=== PATIENT | female | born 1935 | race Caucasian/White ===

== ENCOUNTER 2019-01-08 09:04 | Inpatient (IN) ==
[2019-01-08] MEDS ORDERED: fentaNYL 100 MCG/2 ML VIAL IV STA (09:25)
[2019-01-08] MEDS ORDERED: ONDANSETRON 4 MG/2 ML VIAL IV STA (09:25)
[2019-01-08 09:41] LABS: Basophils # 0.1 10*3/uL (0.0-0.2); Basophils % 0.5 % (0.0-0.8); Eosinophils % 0.3 % (0.00-10.9); Hematocrit 40.8 VOL% (35.7-47.0); Hemoglobin 12.9 GM/DL (12.0-16.0); Immature Granulocytes % 1.4 %; Immature Granulocytes Absolute 0.18 #; Lymphocytes # 3.8 10*3/uL (1.4-4.0); Mean Corpuscular HGB Conc 31.6 GM/DL (32-36); Mean Corpuscular Volume 90.7 FL (87-102); Mean Platelet Volume 11.8 FL (9.6-12.0); Monocytes % 12.2 % (1.7-12.7); Neutrophils % 55.6 % (38.7-73.9); Platelet Count 226 T/CUMM (130-400); Red Cell Distribution Width 13.6 % (9.3-17.3); White Blood Count 12.6 T/CUMM (4-12)
[2019-01-08 09:50] LABS: INR 0.9; PT Patient Result 10.3 SECS; Partial Thromboplastin Time 24.1 SECS (0-40)
[2019-01-08 10:12] LABS: Albumin 3.9 G/DL (3.4-5.0); Bilirubin,Total 0.6 MG/DL (0.2-1.0); Osmolality,Calculated 284.1 MOS/KG (273-304); Total Protein 7.6 G/DL (6.4-8.3)
[2019-01-08 10:36] LABS: Apearance,Urine Slightly Hazy (Clear); Bacteria,Urine Moderate /HPF (Few); Bilirubin,Urine Negative (Negative); Blood, Urine Small mg/dL (Negative); Glucose,Urine (UA) Negative (Negative); Ketones,Urine 5 mg/dL (Negative); Mucus,Urine Many /LPF (Occasional); Nitrite,Urine Positive (Negative); Protein,Urine 30 MG/DL; Squamous Epithelial Cell,Urine Occasional /HPF (0-10); Urine Color Yellow (Yellow); Urine Specific Gravity 1.021 (1.001-1.035); Urine Urobilinogen < 2.0 EU/DL (0.2-1.0); WBC,Urine 11 /HPF (0-6)
[2019-01-08] MEDS ORDERED: AMPICILLIN/SULBACTAM 3,000 MG in SODIUM CHLORIDE 0.9% 100 ML IV STA (10:47)
[2019-01-08] MEDS ORDERED: ACETAMINOPHEN 325 MG TABLET PO PRN (11:25)
[2019-01-08] MEDS ORDERED: diphenhydrAMINE CAP 25 MG CAPSULE PO PRN (11:25)
[2019-01-08] MEDS ORDERED: ZALEPLON 5 MG CAPSULE PO PRN (11:25)
[2019-01-08] MEDS ORDERED: guaiFENesin/DM ER 600-30 MG TABLET PO PRN (11:25)
[2019-01-08] MEDS ORDERED: PROMETHAZINE 25 MG/1 ML VIAL IM PRN (11:25)
[2019-01-08] MEDS ORDERED: MORPHINE 4 MG/1 ML VIAL IV PRN (11:25)
[2019-01-08] MEDS: SODIUM CHLORIDE 0.45% 1,000 ML IV SCH (14:21)
[2019-01-08] MEDS ORDERED: ceFAZolin 2,000 MG in PREMIX 1 EACH IV ONE (14:49)
[2019-01-08] MEDS: ceFAZolin 1,000 MG in SYRINGE 1 EACH IV SCH ×2 (15:30→23:35)
[2019-01-08] MEDS ORDERED: ROPIVACAINE 0.5% 30 ML VIAL ONE (18:12)
[2019-01-08] MEDS ORDERED: PROPOFOL 200 MG/20 ML VIAL IV ONE (18:17)
[2019-01-08] MEDS ORDERED: MIDAZOLAM 2 MG/2 ML VIAL ONE (18:18)
[2019-01-08] MEDS ORDERED: BUPIVACAINE SPINAL 0.75% 2 ML AMP SPINAL ONE (18:18)
[2019-01-08] MEDS ORDERED: DEXAMETHASONE 4 MG/1 ML VIAL ONE (18:18)
[2019-01-08] MEDS ORDERED: ETOMIDATE 40 MG/20 ML VIAL IV ONE (18:18)
[2019-01-08] MEDS ORDERED: fentaNYL 100 MCG/2 ML VIAL ONE (18:18)
[2019-01-08] MEDS ORDERED: ONDANSETRON 4 MG/2 ML VIAL ONE (18:18)
[2019-01-08] MEDS ORDERED: SODIUM CHLORIDE 0.9% 200 ML IV ONE (18:19)
[2019-01-08] MEDS ORDERED: LACTATED RINGERS 1,000 ML IV ONE (18:19)
[2019-01-08] MEDS ORDERED: PHENYLEPHRINE 1 MG/10 ML SYRINGE IV ONE (18:19)
[2019-01-08] MEDS ORDERED: ACETAMINOPHEN 1,000 MG/100 ML VIAL IV ONE (18:19)
[2019-01-08] MEDS: AMPICILLIN/SULBACTAM 3,000 MG in SODIUM CHLORIDE 0.9% 100 ML IV SCH (19:33)
[2019-01-08] MEDS: DOCUSATE SODIUM 100 MG CAPSULE PO SCH (21:04)
[2019-01-08] MEDS: ENOXAPARIN 40 MG/0.4 ML SYRINGE SUBCUT SCH (21:05)
[2019-01-09] MEDS: AMPICILLIN/SULBACTAM 3,000 MG in SODIUM CHLORIDE 0.9% 100 ML IV SCH ×3 (02:35→18:40)
[2019-01-09 05:32] LABS: Basophils # 0.1 10*3/uL (0.0-0.2); Basophils % 0.3 % (0.0-0.8); Eosinophils % 0.2 % (0.00-10.9); Hematocrit 34.1 VOL% (35.7-47.0); Immature Granulocytes % 0.4 %; Immature Granulocytes Absolute 0.07 #; Lymphocytes # 4.1 10*3/uL (1.4-4.0); Lymphocytes % 22.3 % (21.3-54.2); Mean Corpuscular HGB Conc 32.3 GM/DL (32-36); Mean Corpuscular Volume 90.5 FL (87-102); Mean Platelet Volume 12.6 FL (9.6-12.0); Monocytes % 17.8 % (1.7-12.7); Platelet Count 186 T/CUMM (130-400); Red Blood Count 3.77 MC/CUMM (3.8-5.5); White Blood Count 18.6 T/CUMM (4-12)
[2019-01-09] MEDS: LEVOTHYROXINE 50 MCG TABLET PO SCH (05:47)
[2019-01-09 05:56] LABS: Hypochromasia Slight; Lymphocytes 17 % (20-55); Platelet Estimate Adequate; Segmented Neutrophils 73 % (50-85); Total Cells Counted 100
[2019-01-09 05:57] LABS: Ovalocytes Slight
[2019-01-09 06:02] LABS: Calcium 7.4 MG/DL (8.5-10.1); Osmolality,Calculated 279.4 MOS/KG (273-304)
[2019-01-09 06:09] LABS: Risk Ratio 2.02
[2019-01-09] MEDS: SODIUM CHLORIDE 0.45% 1,000 ML IV SCH ×2 (06:45→09:25)
[2019-01-09] MEDS: amLODIPine 10 MG TABLET PO SCH (09:17)
[2019-01-09] MEDS: PANTOPRAZOLE 40 MG TABLET PO SCH (09:18)
[2019-01-09] MEDS: ATORVASTATIN 20 MG TABLET PO SCH (09:19)
[2019-01-09] MEDS: DOCUSATE SODIUM 100 MG CAPSULE PO SCH ×2 (09:19→22:06)
[2019-01-09] MEDS: ceFAZolin 1,000 MG in SYRINGE 1 EACH IV SCH ×2 (09:22→17:05)
[2019-01-09] MEDS: ENOXAPARIN 40 MG/0.4 ML SYRINGE SUBCUT SCH (22:06)
[2019-01-10] MEDS: ceFAZolin 1,000 MG in SYRINGE 1 EACH IV SCH ×2 (00:03→08:30)
[2019-01-10] MEDS: SODIUM CHLORIDE 0.45% 1,000 ML IV SCH (00:03)
[2019-01-10] MEDS: AMPICILLIN/SULBACTAM 3,000 MG in SODIUM CHLORIDE 0.9% 100 ML IV SCH ×2 (02:17→12:00)
[2019-01-10 05:57] LABS: Basophils # 0.1 10*3/uL (0.0-0.2); Basophils % 0.4 % (0.0-0.8); Hematocrit 30.8 VOL% (35.7-47.0); Hemoglobin 9.8 GM/DL (12.0-16.0); Immature Granulocytes % 0.7 %; Immature Granulocytes Absolute 0.15 #; Lymphocytes % 19.8 % (21.3-54.2); Mean Corpuscular HGB Conc 31.8 GM/DL (32-36); Mean Corpuscular Volume 91.4 FL (87-102); Mean Platelet Volume 12.8 FL (9.6-12.0); Monocytes % 18.6 % (1.7-12.7); Neutrophils % 60.5 % (38.7-73.9); Platelet Count 136 T/CUMM (130-400); Red Blood Count 3.37 MC/CUMM (3.8-5.5); White Blood Count 20.1 T/CUMM (4-12)
[2019-01-10 06:14] LABS: Albumin 2.4 G/DL (3.4-5.0); Bilirubin,Total 0.7 MG/DL (0.2-1.0); Osmolality,Calculated 275.7 MOS/KG (273-304); Total Protein 5.6 G/DL (6.4-8.3)
[2019-01-10 06:27] LABS: Eosinophils 1 % (0-10); Lymphocytes 15 % (20-55); Platelet Estimate Normal; Segmented Neutrophils 73 % (50-85); Total Cells Counted 100
[2019-01-10 06:28] LABS: Hypochromasia 1+; Ovalocytes Slight
[2019-01-10] MEDS: LEVOTHYROXINE 50 MCG TABLET PO SCH (07:02)
[2019-01-10] MEDS ORDERED: POTASSIUM CHLORIDE 20 MEQ TABLET PO ONE ×2 (07:14→11:00)
[2019-01-10] MEDS ORDERED: MAGNESIUM SULF RIDER 2 GM in PREMIX 1 EACH IV PRN (08:39)
[2019-01-10] MEDS ORDERED: MAGNESIUM SULF RIDER 4 GM in PREMIX 1 EACH IV PRN (08:39)
[2019-01-10] MEDS: DOCUSATE SODIUM 100 MG CAPSULE PO SCH ×2 (08:48→21:06)
[2019-01-10] MEDS: ATORVASTATIN 20 MG TABLET PO SCH (08:48)
[2019-01-10] MEDS: amLODIPine 10 MG TABLET PO SCH (08:48)
[2019-01-10] MEDS: PANTOPRAZOLE 40 MG TABLET PO SCH (08:48)
[2019-01-10 11:22] LABS: Calcium 7.8 MG/DL (8.5-10.1); Osmolality,Calculated 274.8 MOS/KG (273-304)
[2019-01-10] MEDS: cefTRIAXone 1,000 MG in SYRINGE 1 EACH IV SCH (12:00)
[2019-01-10] MEDS: ONDANSETRON 4 MG/2 ML VIAL IV PRN (16:16)
[2019-01-10] MEDS: ENOXAPARIN 40 MG/0.4 ML SYRINGE SUBCUT SCH (21:06)
[2019-01-11] MEDS ORDERED: POTASSIUM CHLORIDE 20 MEQ TABLET PO PRN (04:00)
[2019-01-11 06:22] LABS: Basophils % 0.2 % (0.0-0.8); Eosinophils # 0.1 10*3/uL (0.0-0.87); Eosinophils % 0.4 % (0.00-10.9); Hematocrit 27.8 VOL% (35.7-47.0); Immature Granulocytes % 0.6 %; Lymphocytes % 18.2 % (21.3-54.2); Mean Corpuscular HGB Conc 32.4 GM/DL (32-36); Mean Corpuscular Volume 90.6 FL (87-102); Mean Platelet Volume 13.1 FL (9.6-12.0); Neutrophils % 63.6 % (38.7-73.9); Platelet Count 124 T/CUMM (130-400); Red Blood Count 3.07 MC/CUMM (3.8-5.5); White Blood Count 16.5 T/CUMM (4-12)
[2019-01-11] MEDS: LEVOTHYROXINE 50 MCG TABLET PO SCH (06:35)
[2019-01-11 06:47] LABS: Alanine Aminotransferase < 6 U/L (13-56); Albumin 2.1 G/DL (3.4-5.0); Alkaline Phosphatase 107 U/L (45-117); Aspartate Amino Transferase 10 U/L (0-37); Blood Urea Nitrogen 13 MG/DL (7-18); Calcium 7.4 MG/DL (8.5-10.1); Glucose 107 MG/DL (74-106); Osmolality,Calculated 274.7 MOS/KG (273-304); Total Protein 5.4 G/DL (6.4-8.3)
[2019-01-11] MEDS: SODIUM CHLORIDE 0.45% 1,000 ML IV SCH ×2 (06:47→06:48)
[2019-01-11 06:48] LABS: Hypochromasia Slight; Lymphocytes 10 % (20-55); Platelet Estimate Normal; Segmented Neutrophils 73 % (50-85); Total Cells Counted 100
[2019-01-11] MEDS: DOCUSATE SODIUM 100 MG CAPSULE PO SCH ×2 (08:10→21:09)
[2019-01-11] MEDS: PANTOPRAZOLE 40 MG TABLET PO SCH (08:10)
[2019-01-11] MEDS: ATORVASTATIN 20 MG TABLET PO SCH (08:11)
[2019-01-11] MEDS: amLODIPine 10 MG TABLET PO SCH (08:11)
[2019-01-11] MEDS: cefTRIAXone 1,000 MG in SYRINGE 1 EACH IV SCH (11:23)
[2019-01-11] MEDS: ONDANSETRON 4 MG/2 ML VIAL IV PRN (13:04)
[2019-01-11] MEDS: ENOXAPARIN 40 MG/0.4 ML SYRINGE SUBCUT SCH (21:10)
[2019-01-12] MEDS: SODIUM CHLORIDE 0.45% 1,000 ML IV SCH (03:10)
[2019-01-12 04:48] LABS: Basophils # 0.1 10*3/uL (0.0-0.2); Basophils % 0.4 % (0.0-0.8); Eosinophils # 0.1 10*3/uL (0.0-0.87); Hematocrit 27.2 VOL% (35.7-47.0); Hemoglobin 8.8 GM/DL (12.0-16.0); Immature Granulocytes % 0.5 %; Immature Granulocytes Absolute 0.07 #; Lymphocytes # 3.3 10*3/uL (1.4-4.0); Lymphocytes % 23.2 % (21.3-54.2); Mean Corpuscular HGB Conc 32.4 GM/DL (32-36); Mean Corpuscular Volume 90.7 FL (87-102); Mean Platelet Volume 12.5 FL (9.6-12.0); Monocytes % 16.6 % (1.7-12.7); Neutrophils % 58.3 % (38.7-73.9); Platelet Count 159 T/CUMM (130-400); Red Cell Distribution Width 13.9 % (9.3-17.3)
[2019-01-12 05:07] LABS: Bilirubin,Total 0.8 MG/DL (0.2-1.0); Calcium 7.7 MG/DL (8.5-10.1); Osmolality,Calculated 276.5 MOS/KG (273-304); Total Protein 5.5 G/DL (6.4-8.3)
[2019-01-12 05:20] LABS: Eosinophils 3 % (0-10); Hypochromasia 1+; Lymphocytes 23 % (20-55); Platelet Estimate Normal; Segmented Neutrophils 66 % (50-85); Total Cells Counted 100
[2019-01-12] MEDS: LEVOTHYROXINE 50 MCG TABLET PO SCH (05:44)
[2019-01-12] MEDS: amLODIPine 10 MG TABLET PO SCH (09:21)
[2019-01-12] MEDS: ATORVASTATIN 20 MG TABLET PO SCH (09:21)
[2019-01-12] MEDS: PANTOPRAZOLE 40 MG TABLET PO SCH (09:21)
[2019-01-12] MEDS: DOCUSATE SODIUM 100 MG CAPSULE PO SCH (09:21)
[2019-01-12] MEDS ORDERED: AZITHROMYCIN INJ 500 MG in SODIUM CHLORIDE 0.9% 250 ML IV SCH (11:00)
[2019-01-12] MEDS: cefTRIAXone 1,000 MG in SYRINGE 1 EACH IV SCH (11:21)
[2019-01-12 11:48] VITALS: BP 122/52
== END 2019-01-12 16:15 | disposition home or self-care (01) | DRG 470 ==
LOC: EDBD → EDUNIT# → N.ED 09:04 → N.EDINP 10:50 → SUATTDRO 10:50 → N.5E 11:29 → N.3E 01-09 21:06
PROVIDERS: ADMIT Internal Medicine; ATTEND Internal Medicine